=== PATIENT | female | born 1955 | race Caucasian/White ===

== ENCOUNTER 2021-02-04 11:15 | Outpatient (REF) | payer MEDICARE, SELFPAY ==
[2021-02-04 12:46] LABS: Alanine Aminotransferase 15 U/L (0-31); Albumin Level 4.1 g/dL (3.5-5.0); Alkaline Phosphatase 106 U/L (39-117); Aspartate Amino Transferase 24 U/L (5-31); Bilirubin Direct 0.2 mg/dL (0.0-0.5); Bilirubin Total 0.7 mg/dL (0.0-1.0); Total Protein 8.8 g/dL (6.5-8.0)
[2021-02-06 09:56] LABS: HCV RNA PCR Qn 5.84 Log IU/mL (NOT DETECTED)
[2021-02-09 21:46] LABS: FIB-ALT 14 U/L (6-29); FIB-Alpha-2-Macroglobulin 295 mg/dL (106-279); FIB-Apolipoprotein A1 123 mg/dL (101-198); FIB-GGT 21 U/L (3-65); FIB-Haptoglobin 100 mg/dL (43-212); FIB-Total Bilirubin 0.5 mg/dL (0.2-1.2); Liver Fibrosis Score 0.48; Liver Fibrosis Stage F2; Nec Inflam Act Grade A0; Nec Inflam Act Score 0.06
[2021-02-10 20:22] LABS: HCV Genotype LiPA 1b
== END 2021-02-04 11:16 | disposition home or self-care (01) ==
LOC: HO.LAB 11:15
PROVIDERS: Visit Provider Internal Medicine Gastroenterology
DX: B19.20 Unspecified viral hepatitis C without hepatic coma (principal)
CPT/HCPCS: 36415; 80076; 81596; 87902